=== PATIENT | female | born 1990 | race Caucasian/White ===

== ENCOUNTER 2017-01-19 15:33 | Emergency (ER) | payer BC, MEDICAID ==
[2017-01-19 15:34] VITALS: BMI 30.2
[2017-01-19 15:43] VITALS: BP 113/69; PULSE 103; RESP 18; TEMP 98.2; O2SAT 100
--- NOTE | 2017-01-19 16:15 | ED PDOC ---
Lower Extremity Pain/Injury Time Seen by Provider: 01/19/17 15:49 Chief Complaint (Nursing): Lower Extremity Problem/Injury Chief Complaint (Provider): Lower Extremity Problem/Injury History Per: Patient History/Exam Limitations: no limitations Onset/Duration Of Symptoms: Days (x1) Additional Complaint(s): Abigail Partida, 26 year old female presents to the ED on 01/19/17. The patient is 17 weeks . The patient reports consistent left lower back pain which sometimes radiates down to her left knee beginning yesterday. The patient reports lifting her child a lot. She denies any recent injury, dysuria, chest pain, nausea, or vomiting. The patient reports having some diarrhea this week. She has taken Tylenol for her pain with mild relief. The last dose of Tylenol was taken at 2:00 AM yesterday morning. No pelvic pain. No abd pain. No fever, dizziness. No numbness, tingles. No incontinence or constipation. Of note, the patient's blood is O+ reported from previous labs. Past Medical History Reviewed: Historical Data, Nursing Documentation, Vital Signs Vital Signs: Last Vital Signs Temp 98.2 F 01/19/17 15:40 Pulse 103 H 01/19/17 15:40 Resp 18 01/19/17 15:40 BP 113/69 01/19/17 15:40 Pulse Ox 100 01/19/17 15:40 - Medical History PMH: Asthma Denies: Chronic Kidney Disease - Surgical History Surgical History: No Surg Hx - Family History Family History: States: Unknown Family Hx - Home Medications Home Medications: Ambulatory Orders Medication Instructions Recorded Vit No.126/Iron/Folic 1 tab PO DAILY 08/19/15 [Prenavite] valACYclovir [Valtrex] 500 mg PO DAILY 12/15/15 Nitrofurantoin Macrocrystals 100 mg PO BID #10 cap 01/19/17 [Macrobid] - Allergies Allergies/Adverse Reactions: Allergies Allergy/AdvReac Type Severity Reaction Status Date / Time No Known Allergies Allergy Verified 01/19/17 15:39 Review of Systems ROS Statement: Except As Marked, All Systems Reviewed And Found Negative Cardiovascular: Negative for: Chest Pain Gastrointestinal: Positive for: Diarrhea. Negative for: Nausea, Vomiting Genitourinary Female: Negative for: Dysuria Musculoskeletal: Positive for: Back Pain (consistent left lower back pain sometimes radiating down to left knee ) Neurological: Negative for: Weakness, Numbness, Dizziness Physical Exam - Reviewed Nursing Documentation Reviewed: Yes Vital Signs Reviewed: Yes - Physical Exam Appears: Positive for: Non-toxic, No Acute Distress Head Exam: Positive for: ATRAUMATIC, NORMOCEPHALIC Skin: Positive for: Normal Color, Warm, Dry Eye Exam: Positive for: Normal appearance ENT: Positive for: Normal ENT Inspection Cardiovascular/Chest: Positive for: Regular Rate, Rhythm, Chest Non Tender Respiratory: Positive for: Normal Breath Sounds. Negative for: Respiratory Distress Gastrointestinal/Abdominal: Positive for: Normal Exam, Bowel Sounds, Soft. Negative for: Tenderness Back: Positive for: Normal Inspection, L CVA Tenderness, Other (mild tenderness to left lower back ) Extremity: Positive for: Normal ROM (left leg elevated to 60 degrees with tenderness to back). Negative for: Tenderness, Pedal Edema, Calf Tenderness Neurologic/Psych: Positive for: Alert, Oriented (x3) - Laboratory Results Result Diagrams: 01/19/17 16:40 01/19/17 16:40 Interpretation Of Abn Labs: urine wbc - ECG O2 Sat by Pulse Oximetry: 100 (RA) Pulse Ox Interpretation: Normal - Progress ED Course And Treament: 1859: Stable. AAOx3. Pain free. Tolerated PO. Fu with pcp and obgyn. Medical Decision Making Medical Decision Making: Initial Impression: Consistent left lower back pain sometimes radiating down to left knee. Possible source inclusive of but not limited to lifting child. Initial Plan: * Basic Metabolic Panel Stat * Beta-HCG, Quantitative Stat * ED Urine (POC) Stat * ED Urine Dipstick (POC) Stat * CBC (With Differential) Stat * Tylenol 325 mg tab 650 mg PO Stat * OB , Limited [US] Stat * Reevaluation Scribe Attestation: Documented by Flakita Erazo, acting as a scribe for Jim Wills MD. Provider Scribe Attestation: All medical record entries made by the Scribe were at my direction and personally dictated by me. I have reviewed the chart and agree that the record accurately reflects my personal performance of the history, physical exam, medical decision making, and the department course for this patient. I have also personally directed, reviewed, and agree with the discharge instructions and disposition. Disposition - Clinical Impression Clinical Impression: Back pain, Back pain, UTI (urinary tract infection) - Patient ED Disposition Is Patient to be Admitted: No Counseled Patient/Family Regarding: Studies Performed, Diagnosis, Need For Followup, Rx Given - [facility]position [facility] - [facility]17 Disposition: Routine/Home Disposition Time: 19:01 Condition: STABLE Additional Instructions: Return if not better in 3 days. Prescriptions: Nitrofurantoin Macrocrystals [Macrobid] 100 mg PO BID #10 cap Instructions: Urinary Tract Infection in (ED), Back Pain (ED)
[2017-01-19 16:52] LABS: BASO % 0.3 % (0.0-2.0); EOS # 0.2 K/uL (0.0-0.7); EOS % 2.5 % (0.0-4.0); HEMATOCRIT 32.8 % (34.0-47.0); LYMPH % 28.3 % (20.0-40.0); MEAN CELL VOLUME 88.7 fl (81.0-99.0); MEAN CORPUSCULAR HEMOGLOBIN 29.5 pg (27.0-31.0); MEAN CORPUSCULAR HGB CONC 33.2 g/dL (33.0-37.0); MEAN PLATELET VOLUME 8.9 fl (7.2-11.7); MONO # 0.7 K/uL (0.0-0.8); MONO % 10.6 % (0.0-10.0); NEUT % 58.3 % (50.0-75.0); RED CELL DISTRIBUTION WIDTH 14.2 % (11.5-14.5); WHITE BLOOD COUNT 6.9 K/uL (4.8-10.8)
[2017-01-19 17:14] LABS: BLOOD UREA NITROGEN 9 mg/dl (7-17); CALCIUM 8.8 mg/dL (8.4-10.2); CARBON DIOXIDE 25 mmol/L (22-30); CHLORIDE 104 mmol/L (98-107); GFR AFRICAN-AMERICAN > 60; GLUCOSE,RANDOM 92 mg/dL (65-105); POTASSIUM 3.9 MMOL/L (3.6-5.0); SODIUM 137 mmol/l (132-148)
[2017-01-19 17:24] LABS: RBC URINE 7 /hpf (0-3); URINE BACTERIA RARE (<OCC); URINE BILIRUBIN NEGATIVE (NEGATIVE); URINE BLOOD NEGATIVE (NEGATIVE); URINE CALCIUM OXALATE CRYSTALS OCC /hpf (<OCC); URINE COLOR YELLOW (YELLOW); URINE GLUCOSE (UA) NEG (Normal); URINE KETONE NEGATIVE (NEGATIVE); URINE LEUKOCYTE ESTERASE MOD Leu/uL (Negative); URINE PROTEIN NEGATIVE (NEGATIVE); URINE UROBILINOGEN 0.2-1.0 mg/dL (0.2-1.0); WBC URINE 9 /hpf (0-5)
--- NOTE | 2017-01-19 18:52 | US ---
Indication: back pain; eval pt. r/o bleeding Comparison: Transvaginal pelvic ultrasound performed 04/23/15 Technique: OB , limited. Real-time ultrasound was performed through the pelvis. Findings: There is a single living fetus in cephalic presentation. Anterior fundal placenta. The placenta is not previa. There are no adnexal masses or cysts evident. The right ovary is not seen. The left ovary measures approximately 3.0 x 2.0 x 3.1 cm. Blood flow is demonstrated to the left ovary. Cervix length measures approximately 4.4 cm. Measurements and calculations: Fetus has a composite sonographic age of 17 weeks 6 days. This calculation is based on the biparietal diameter, head circumference, abdominal circumference, and femur length. Estimated heart rate 164 beats per min. Impression: Single living fetus with a composite sonographic age of 17 weeks 6 days. Estimated heart rate 164 beats per min. The study was performed for the emergent evaluation of bleeding, and the whole anatomic survey of the fetus was not performed. This should be performed on an outpatient elective basis as clinically warranted.
== END 2017-01-19 19:12 | disposition home or self-care (01) ==
LOC: H.ER 15:33
DX: O23.42 Unspecified infection of urinary tract in pregnancy, second trimester (principal); Z3A.17 17 weeks gestation of pregnancy; M54.5 Low back pain

== ENCOUNTER 2017-02-01 19:36 | Emergency (ER) | payer BC ==
[2017-02-01 19:36] VITALS: BMI 30.2
[2017-02-01 19:47] VITALS: BP 121/64; RESP 16; TEMP 98.2; O2SAT 100
--- NOTE | 2017-02-01 20:38 | ED PDOC ---
HPI: Chest Pain Time Seen by Provider: 02/01/17 20:00 Chief Complaint (Nursing): Chest Pain Chief Complaint (Provider): Chest pain History Per: Patient History/Exam Limitations: no limitations Onset/Duration Of Symptoms: Hrs Current Symptoms Are (Timing): Still Present Context: Food Quality: Tightness Associated Symptoms: denies: Nausea Additional History Per: Patient Additional Complaint(s): The patient is a 26yo female, 20 weeks , PMHx of thyroid problems, asthma, presents to the ED for evaluation of chest tightness with associated left arm tingling since 1830 today; states she was sleeping after eating food and woke up due to her symptoms. Pt reports she thought the chest discomfort was due to heartburn but states she was concerned due to the tingling. She states her chest tightness is intermittent at present and spreads to her b/l ribs. She reports some shortness of breath due to the tightness. Denies taking any medications for her symptoms. Of note, pt states she spoke with her OBGYN who informed her to visit the ED for further evaluation. Past Medical History Reviewed: Historical Data, Nursing Documentation, Vital Signs Vital Signs: Last Vital Signs Temp 98.2 F 02/01/17 19:45 Pulse 92 H 02/01/17 22:07 Resp 16 02/01/17 19:45 BP 121/64 02/01/17 19:45 Pulse Ox 100 02/01/17 22:07 - Medical History PMH: Asthma Denies: Chronic Kidney Disease - Family History Family History: States: Unknown Family Hx - Home Medications Home Medications: Ambulatory Orders Medication Instructions Recorded Vit No.126/Iron/Folic 1 tab PO DAILY 08/19/15 [Prenavite] valACYclovir [Valtrex] 500 mg PO DAILY 12/15/15 Nitrofurantoin Macrocrystals 100 mg PO BID #10 cap 01/19/17 [Macrobid] Famotidine [Pepcid] 20 mg PO BID PRN #10 tab 02/01/17 - Allergies Allergies/Adverse Reactions: Allergies Allergy/AdvReac Type Severity Reaction Status Date / Time No Known Allergies Allergy Verified 01/19/17 15:39 Review of Systems ROS Statement: Except As Marked, All Systems Reviewed And Found Negative Cardiovascular: Positive for: Other (chest tightness) Respiratory: Positive for: Shortness of Breath (mild) Musculoskeletal: Positive for: Other (tingling to left arm) Physical Exam - Reviewed Nursing Documentation Reviewed: Yes Vital Signs Reviewed: Yes - Physical Exam Appears: Positive for: Well, Non-toxic, No Acute Distress Head Exam: Positive for: ATRAUMATIC, NORMAL INSPECTION, NORMOCEPHALIC Skin: Positive for: Normal Color, Warm, DRY Eye Exam: Positive for: Normal appearance, EOMI, PERRL Neck: Positive for: Normal, Supple Cardiovascular/Chest: Positive for: Regular Rate, Rhythm Respiratory: Positive for: Normal Breath Sounds. Negative for: Respiratory Distress Gastrointestinal/Abdominal: Positive for: Normal Exam Extremity: Positive for: Normal ROM. Negative for: Deformity, Swelling Neurologic/Psych: Positive for: Alert, Oriented - Laboratory Results Result Diagrams: 02/01/17 20:53 02/01/17 20:53 - ECG ECG: Positive for: Interpreted By Me, Viewed By Me Interpretation Of ECG: Normal sinus rhythm sinus arrhythmia Rate 92. Rate: 92 O2 Sat by Pulse Oximetry: 100 (RA) Pulse Ox Interpretation: Normal Medical Decision Making Medical Decision Making: Time: 2014 Impression: Acid Reflux in setting of Plan: -- EKG -- CMP -- Lipase -- Troponin -- CBC -- Pepcid 20 mg IVP Reassess Time: 1999 Pt reports feeling much better. Stable for d/c home. Will follow up with PCP. Scribe Attestation: Documented by Beth Saldana acting as a scribe for Kenyatta Bearden MD. Provider Attestation: All medical record entries made by the Scribe were at my direction and personally dictated by me. I have reviewed the chart and agree that the record accurately reflects my personal performance of the history, physical exam, medical decision making, and the department course for this patient. I have also personally directed, reviewed, and agree with the discharge instructions and disposition. Disposition - Clinical Impression Clinical Impression: Gastritis - Patient ED Disposition Is Patient to be Admitted: No - Disposition Disposition: Routine/Home Disposition Time: 21:00 Condition: IMPROVED Additional Instructions: follow up with your primary doctor in 1-2 days return to the ED with any worsening or concerning symptoms Prescriptions: Famotidine [Pepcid] 20 mg PO BID PRN #10 tab PRN Reason: Heartburn Instructions: Gastritis (ED)
[2017-02-01 20:59] LABS: BASO % 0.4 % (0.0-2.0); EOS # 0.3 K/uL (0.0-0.7); EOS % 3.5 % (0.0-4.0); HEMOGLOBIN 10.1 g/dL (12.0-16.0); LYMPH % 29.9 % (20.0-40.0); MEAN CORPUSCULAR HEMOGLOBIN 29.8 pg (27.0-31.0); MEAN CORPUSCULAR HGB CONC 33.5 g/dL (33.0-37.0); MEAN PLATELET VOLUME 8.4 fl (7.2-11.7); MONO # 0.9 K/uL (0.0-0.8); MONO % 9.2 % (0.0-10.0); NEUT # 5.7 K/uL (1.8-7.0); RBC 3.39 Mil/uL (3.80-5.20); RED CELL DISTRIBUTION WIDTH 13.8 % (11.5-14.5); WHITE BLOOD COUNT 9.9 K/uL (4.8-10.8)
[2017-02-01 21:12] LABS: ALBUMIN 3.2 g/dL (3.5-5.0); ALT/SGPT 31 U/L (9-52); AST/SGOT 32 U/L (14-36); BLOOD UREA NITROGEN 11 mg/dl (7-17); CALCIUM 8.4 mg/dL (8.4-10.2); GFR AFRICAN-AMERICAN > 60; GFR NON-AFRICAN AMERICAN > 60; LIPASE 252 U/L (23-300)
[2017-02-01 22:07] VITALS: PULSE 92
--- NOTE | 2017-02-07 10:03 | CARD ---
APPROVED REPORT EKG Measurement Heart [id number] HI [id number] <Conclusion> Normal sinus rhythm with sinus arrhythmia Nonspecific ST abnormality Abnormal ECG
== END 2017-02-01 22:45 | disposition home or self-care (01) ==
LOC: H.ER 19:36
DX: R07.89 Other chest pain (principal); K29.70 Gastritis, unspecified, without bleeding; R12 Heartburn; Z33.1 Pregnant state, incidental

== ENCOUNTER 2017-05-16 16:46 | Emergency (ER) | payer BC ==
[2017-05-15 13:24] VITALS: BMI 30.2
--- NOTE | 2017-05-16 18:08 | OBHP ---
Datetime: 05/16/2017 17:50 IP Adm Impression: , intrauterine ; No Active Labor IP Admit Plan: Observation/Evaluation; Discharge home Admit Comment, IP Provider: The patient's 27-year-old 2 para 1 estimated due date 1127 estim ated gestational age 34 weeks patient presents to labor and delivery complaining of vaginal discharge that started at 10 AM. Patient called PMD patient was referred to L_D for rule out rupture. Patient denies any uterine contractions she reports good movement patient states care has been unremarkable Past medical history asthma Medications vitamins Social history denies alcohol tobacco use Surgical history previous normal spontaneous vaginal delivery female 6 lbs. 12 oz. Review of systems patient denies headache chest pain shortness of breath palpitations nausea vomit ing diarrhea vaginal bleeding. Cold intolerance easy bruisability musculoskeletal or neurological com plaints Vital signs stable afebrile Physical exam see notes Intrauterine at 34 weeks Vaginal discharge Bedside sonogram NETO 10+ Physiological discharge Patient to follow up with PMD labor precautions provided Pelvic Type - PN: Adequate Extremities - PN: Normal Abdomen - PN: Normal Back - PN: Normal Breast - PN: Not Done Lungs - PN: Normal Heart - PN: Normal Thyroid - PN: Normal Neurologic - PN: Normal HEENT - PN: Normal General - PN: Normal Presentation-Admit: Vertex FHR - Baseline A Provider: 145 Gestation - Est Wks by US: 34.0 Pool Provider: Negative Vital Signs Provider: Reviewed IP Chief Complaint: Other NICHD Variability Prov Fetus A: Moderate 6-25bpm NICHD Accel Fetus A IP Provider: 10X10 FHR Category Provider Fetus A: Category I NICHD Decel Fetus A IP Provider: None Dilatation, Provider: 0 Effacement, Provider: 0 Station, Provider: 0 Genitourinary Exam: Normal DTRs - PN: Normal
[2017-05-16 22:26] VITALS: BP 107/62; PULSE 98; RESP 18; TEMP 98.4; O2SAT 100
== END 2017-05-16 18:00 | disposition home or self-care (01) ==
LOC: H.EROB2 16:46 → H.EROB 16:59 → H.EROB2 18:00
DX: O34.60 Maternal care for abnormality of vagina, unspecified trimester (principal); N89.8 Other specified noninflammatory disorders of vagina; Z3A.35 35 weeks gestation of pregnancy; O47.03 False labor before 37 completed weeks of gestation, third trimester

== ENCOUNTER 2017-06-12 19:52 | Inpatient (IN) | payer BC ==
[2017-06-12 21:37] VITALS: BMI 27.4
[2017-06-12 22:07] LABS: BASO % 0.4 % (0.0-2.0); EOS # 0.2 K/uL (0.0-0.7); EOS % 2.1 % (0.0-4.0); HEMATOCRIT 31.8 % (34.0-47.0); LYMPH % 29.9 % (20.0-40.0); MEAN CELL VOLUME 87.6 fl (81.0-99.0); MEAN CORPUSCULAR HEMOGLOBIN 29.1 pg (27.0-31.0); MEAN CORPUSCULAR HGB CONC 33.2 g/dL (33.0-37.0); MEAN PLATELET VOLUME 8.9 fl (7.2-11.7); MONO # 1.3 K/uL (0.0-0.8); MONO % 13.2 % (0.0-10.0); NEUT # 5.4 K/uL (1.8-7.0); NEUT % 54.4 % (50.0-75.0); RED CELL DISTRIBUTION WIDTH 15.1 % (11.5-14.5)
--- NOTE | 2017-06-12 22:12 | OBHP ---
Datetime: 06/12/2017 22:07 IP Adm Impression: Term, intrauterine ; No Active Labor IP Admit Plan: Admit to unit Admit Comment, IP Provider: The patient's 27-year-old 2 para 1 estimated due date 1127 estim ated gestational age 38 weeks patient presents to labor and delivery complaining of passing her mucou s plug. Patient called PMD patient was referred to L_D. Patient denies any uterine contractions she r eports good movement patient states care has been unremarkable Past medical history asthma Medications vitamins Social history denies alcohol tobacco use Surgical history previous normal spontaneous vaginal delivery female infant 6 lbs. 12 oz. Review of systems patient denies headache chest pain shortness of breath palpitations nausea vomit ing diarrhea vaginal bleeding. Cold intolerance easy bruisability musculoskeletal or neurological com plaints Vital signs stable afebrile Physical exam see notes Intrauterine at 38 weeks latent labor vertex presentation adequate pelvis efw 7 lbs Discussed care with PMD pt for admissoion Pelvic Type - PN: Adequate Extremities - PN: Normal Abdomen - PN: Normal Back - PN: Normal Breast - PN: Normal Lungs - PN: Normal Heart - PN: Normal Thyroid - PN: Normal Neurologic - PN: Normal HEENT - PN: Normal General - PN: Normal Weight - Estimated: 7 Presentation-Admit: Vertex FHR - Baseline A Provider: 145 Gestation - Est Wks by US: 38.0 Pool Provider: Negative Vital Signs Provider: Reviewed IP Chief Complaint: Uterine contractions; Maternal discomfort NICHD Variability Prov Fetus A: Moderate 6-25bpm NICHD Accel Fetus A IP Provider: 15X15 Dilatation, Provider: 3 Effacement, Provider: 75 Station, Provider: -2 Genitourinary Exam: Normal DTRs - PN: Normal
[2017-06-12] MEDS ORDERED: Oxytocin 30 UNITS in Sodium Chloride 0.9% 500 ML IV ONE (22:21)
[2017-06-12] MEDS: Lactated Ringer's 1,000 ML IV SCH (23:00)
[2017-06-13] MEDS: Lactated Ringer's 1,000 ML IV SCH ×3 (05:02→08:00)
[2017-06-13] MEDS ORDERED: Fentanyl/Bupivacaine HCl 250 ML EPI ONE (05:46)
--- NOTE | 2017-06-13 12:27 | OBDS ---
MATERNAL INFORMATION Delivery Anesthesia: Epidural Estimated Blood Loss (ml): 250cc Maternal Complications: None Provider Comments: Delivered a living baby girl appears term cried spontaneously 9/9 AgF clear Nuchal cord x1 loose, undone prior to full delivery Placenta complete and intact Episiotomy repaired as above no complications Uterus contracted well Rectal done no defects Pt tolerated procedure well No complications LABOR SUMMARY EDC: 06/25/2017 00:00 No. Babies in Womb: 1 Attempted: No Labor Anesthesia: Epidural LABOR INFORMATION Reason for Induction: Not Applicable Reason for Induction Other: n/a Onset of Labor: 06/13/2017 05:00 Complete Dilatation: 06/13/2017 11:30 Oxytocin: Augmentation Group B Beta Strep: Negative Antibiotics # of Doses: n/a Antibiotics Time of Last Dose: n/a Steroids Given: None Reason Steroids Not Administered: Not Applicable MEMBRANES Membranes Rupture Method: Artificial Rupture of Membranes: 06/13/2017 07:17 Length of Rupture (hrs): 4.42 Amniotic Fluid Color: Clear Amniotic Fluid Amount: Small Amniotic Fluid Odor: Normal STAGES OF LABOR Stage 1 hrs: 6 Stage 1 min: 30 Stage 2 hrs: 0 Stage 2 min: 12 Stage 3 hrs: 0 Stage 3 min: 4 Total Time in Labor hrs: 6 Total Time in Labor min: 46 VAGINAL DELIVERY Episiotomy: Median Laceration Extension: Second Degree Laceration Type: None Laceration Repair: Not Applicable Laceration Repair Note: mid line episiotomy done and repaired with 2-0 chromic continuously for vagi na and interuupted for deep tissue No complications Initial Vag Sponge Count: laps=5 Final Vag Sponge Count: laps=5 Initial Vag Sharps Count: 1 Final Vag Sharps Count: 1 Sponge Count Correct: Yes Sharps Count Correct: Yes Count Comment: acknowledge by Dr Lim CSECTION DELIVERY Primary Indication: N/A Secondary Indication: N/A BABY A INFORMATION Infant Delivery Date/Time: 06/13/2017 11:42 Method of Delivery: Vaginal Born in Route : No : N/A Forceps: N/A Vacuum Extraction: N/A Shoulder Dystocia : No SHOULDER DYSTOCIA BABY A Delivery Date/Time: 06/13/2017 11:42 PRESENTATION/POSITION BABY A Presentation: Cephalic Cephalic Presentation: Vertex Breech Presentation: N/A PLACENTA INFORMATION BABY A Placenta Delivery Time : 06/13/2017 11:46 Placenta Method of Delivery: Spontaneous Placenta Status: Delivered SCORES BABY A Heart Rate 1 min: >100 bpm Resp Effort 1 min: Good Cry Reflex Irritability 1 min: Cough or Sneeze or Pulls Away Muscle Tone 1 min: Active Motion Color 1 min: Body [place], Extremities Blue Resuscitation Effort 1 min: Tactile Stimulation SCORE 1 MIN: 9 Heart Rate 5 min: >100 bpm Resp Effort 5 min: Good Cry Reflex Irritability 5 min: Cough or Sneeze or Pulls Away Muscle Tone 5 min: Active Motion Color 5 min: Body [place], Extremities Blue Resuscitation Effort 5 min: N/A SCORE 5 MIN: 9 INFANT INFORMATION BABY A Gestational Age at Delivery: 38.2 Gestational Status: Term Infant Outcome : Liveborn Condition : Stable Sex: Female IDENTIFICATION/MEDS BABY A ID Band Number: [id number] ID Band Location: Left Leg; Left Arm Vitamin K Given : Not Given Erythromycin Given: Not Given WEIGHT/LENGTH BABY A Infant Birthweight (gms): 3015 Infant Weight (lb): 6 Weight (oz): 10 Infant Length Inches: 20.00 Length cms: 50.8 CORD INFORMATION BABY A No. Cord Vessels: 3 Nuchal Cord : Around Neck x1, Loose Nuchal Cord Other: n/a True Knot: n/a Infant Cord pH Baby Arterial: n/a Cord pH Baby Venous: n/a Cord Blood Taken: Yes Banking/Donate Info: n/a Suction: Mouth; Nose ASSESSMENT BABY A Complications: None Physical Findings at Delivery: Within Normal Limits Respirations: Appears Normal Floor Finisher/ALS Called : No Infant Care By: Dulce Transferred To: Remains with Mother
[2017-06-13] MEDS ORDERED: Oxycodone/Acetaminophen 5/325 mg Tab PO PRN (12:29)
[2017-06-13] MEDS ORDERED: Oxytocin 30 UNITS in Sodium Chloride 0.9% 500 ML IV SCH (12:30)
[2017-06-13] MEDS ORDERED: Benzocaine/Menthol SPRAY TOP PRN (17:04)
[2017-06-14 06:12] LABS: HEMATOCRIT 29.8 % (34.0-47.0); MEAN CELL VOLUME 86.8 fl (81.0-99.0); MEAN CORPUSCULAR HEMOGLOBIN 29.4 pg (27.0-31.0); MEAN CORPUSCULAR HGB CONC 33.8 g/dL (33.0-37.0); RED CELL DISTRIBUTION WIDTH 15.2 % (11.5-14.5); WHITE BLOOD COUNT 10.2 K/uL (4.8-10.8)
--- NOTE | 2017-06-14 07:39 | OBPPN ---
Datetime: 06/14/2017 07:35 PP Pain Prov: Within normal limits PP Pain Prov comment: No SOB chest or leg pains PP Nausea Prov: Denies PP Flatus Prov: Yes PP Breasts Prov: Normal PP Lungs Prov: Normal PP Abdomen/Uterus Prov: Abnormal PP Lochia Prov: Normal PP Vulva/Perineum Prov: Abnormal PP CVA Tenderness Prov: Normal PP Extremities Prov: Normal PP C/S Incision Prov: Not Applicable PP Progress Prov: Normal PP Comments Phys Exam Prov: breast not engorged, abd soft ND fundus firm NT below the umb PP Impression Prov: Normal progression PP Plan Prov: Continue present management PP Progress Note Prov: continue PP care OOB and ambulation IP PP Procedures: None
[2017-06-14] MEDS ORDERED: Influenza Vaccine 18yr & older 0.5 ML/45 MCG SYR IM ONE (09:00)
--- NOTE | 2017-06-15 08:37 | OBPPN ---
Datetime: 06/15/2017 08:32 PP Pain Prov: Within normal limits PP Pain Prov comment: No SOB, chest pains or leg pains PP Nausea Prov: Denies PP Flatus Prov: Yes PP Nausea Prov comment: voiding well PP Breasts Prov: Normal PP Lungs Prov: Normal PP Abdomen/Uterus Prov: Abnormal PP Lochia Prov: Normal PP CVA Tenderness Prov: Normal PP Extremities Prov: Normal PP C/S Incision Prov: Not Applicable PP Progress Prov: Normal PP Comments Phys Exam Prov: breast not engorged, NT; Abd soft ND fundus firm below the umb. NT, ext no calf tenderness. PP Impression Prov: Normal progression PP Plan Prov: Discharge PP Progress Note Prov: D/C home with instructions and appt to office 4-6 wks Vital Signs Provider PP: Reviewed
--- NOTE | 2017-06-15 08:39 | OBDCSUM ---
Datetime: 06/15/2017 08:35 Discharged to, Provider: Home Follow up at, Provider: Dr Lim Disch Instr Activity: Bedrest; May be up to bathroom; May be up for meals; May Shower Disch Instr Diet: Regular Discharge Instructions, Provider: Routine instructions given Discharge Diagnosis, Provider: Term Delivered Discharge Time: 06/15/2017 08:35 Follow up in weeks, Provider: 4-6 wks Disch Referrals: None Contraception discussed, Prov: Yes Disch Activity Restrictions: No lifting; No driving; Minimize walking; Minimize stair-climbing; No s exual activity; Nothing in vagina - [place], tampons, douche Discharge Comment, Provider: Continue PNC and iron Contraception after Delivery: Undecided
[2017-06-15 17:06] VITALS: BP 98/50; PULSE 74; RESP 18; TEMP 97.9; O2SAT 100
== END 2017-06-15 13:00 | disposition home or self-care (01) | DRG 775 ==
LOC: H.EROB2 19:52 → H.L&D 21:39 → H.OB/GYN 06-13 14:15
PROVIDERS: ADMIT Specialist; ATTEND Specialist
PROC: 0KQM0ZZ Repair Perineum Muscle, Open Approach (ICD-10-PCS; principal; 2017-06-12)
PROC: 10E0XZZ Delivery of Products of Conception, External Approach (ICD-10-PCS; 2017-06-12)
PROC: 0W8NXZZ Division of Female Perineum, External Approach (ICD-10-PCS; 2017-06-12)
DX: O69.81X0 Labor and delivery complicated by cord around neck, without compression, not applicable or unspecified (principal); J45.909 Unspecified asthma, uncomplicated; O70.1 Second degree perineal laceration during delivery; Z37.0 Single live birth; O99.52 Diseases of the respiratory system complicating childbirth; Z3A.38 38 weeks gestation of pregnancy

== ENCOUNTER 2017-09-05 08:11 | Emergency (ER) | payer BC ==
[2017-09-05 08:13] VITALS: BMI 24.1
[2017-09-05 08:16] VITALS: BP 100/70; PULSE 87; RESP 18; TEMP 98.1; O2SAT 100
--- NOTE | 2017-09-05 08:53 | ED PDOC ---
HPI: Back Time Seen by Provider: 09/05/17 08:15 Chief Complaint (Nursing): Back Pain Chief Complaint (Provider): Back Pain History Per: Patient History/Exam Limitations: no limitations Onset/Duration Of Symptoms: Days (x 4 months) Current Symptoms Are (Timing): Still Present Additional Complaint(s): Abigail is a 27 y/o female who presents to the ED complaining of low back pain for the past 4 months that is worse with moving and sitting. Patient states she stands for 10 hours at work which makes it worse. She was recently seen by her PMD who started her on motrin 10mg with minimal relief. She denies paresthesias, weakness, incontinence, or trauma. PMD: Tang Perkins Past Medical History Reviewed: Historical Data, Nursing Documentation, Vital Signs Vital Signs: Last Vital Signs Temp 98.1 F 09/05/17 08:14 Pulse 87 09/05/17 08:14 Resp 18 09/05/17 08:14 BP 100/70 09/05/17 08:14 Pulse Ox 100 09/05/17 08:14 - Medical History PMH: Asthma Denies: Depression, Diabetes, HTN, Chronic Kidney Disease - Family History Family History: States: Unknown Family Hx - Home Medications Home Medications: Ambulatory Orders Medication Instructions Recorded Vit Calc,Iron,Folic 1 each PO DAILY 06/12/17 [ Vitamins] Naproxen [Naprosyn] 500 mg PO BID PRN #15 tablet 09/05/17 Nitrofurantoin Macrocrystals 100 mg PO BID #14 cap 09/05/17 [Macrobid] - Allergies Allergies/Adverse Reactions: Allergies Allergy/AdvReac Type Severity Reaction Status Date / Time seafood Allergy RASH Uncoded 06/12/17 21:38 Review of Systems ROS Statement: Except As Marked, All Systems Reviewed And Found Negative Genitourinary Female: Negative for: Incontinence Musculoskeletal: Positive for: Back Pain (lower) Neurological: Negative for: Weakness, Other (paresthesias) Physical Exam - Reviewed Nursing Documentation Reviewed: Yes Vital Signs Reviewed: Yes - Physical Exam Appears: Positive for: Well (ambulating without difficulty), Non-toxic, No Acute Distress Back: Positive for: Vertebral Tenderness (mild lumbar). Negative for: Other ( straight leg) Extremity: Positive for: Normal ROM Neurologic/Psych: Positive for: Alert, Oriented. Negative for: Motor/Sensory Deficits - ECG O2 Sat by Pulse Oximetry: 100 (RA) Pulse Ox Interpretation: Normal Medical Decision Making Medical Decision Making: Time: 8:37 Initial Impression: Chronic Low Back Pain Initial Plan: --XR Lumbar Spine --Urine Dip --Urine --Urine Culture --Urinalysis Scribe Attestation: Documented by Edward Lewis, acting as a scribe for Dr. Orin Prieto MD. Provider Scribe Attestation: All medical record entries made by the Scribe were at my direction and personally dictated by me. I have reviewed the chart and agree that the record accurately reflects my personal performance of the history, physical exam, medical decision making, and the department course for this patient. I have also personally directed, reviewed, and agree with the discharge instructions and disposition. Disposition - Clinical Impression Clinical Impression: Low back pain, UTI (urinary tract infection) - Disposition Referrals: Tang Perkins MD [Family Provider] - Disposition: Routine/Home Disposition Time: 10:57 Condition: STABLE Prescriptions: Naproxen [Naprosyn] 500 mg PO BID PRN #15 tablet PRN Reason: Pain, Moderate (4-7) Nitrofurantoin Macrocrystals [Macrobid] 100 mg PO BID #14 cap Instructions: Urinary Tract Infection in Women (ED), Chronic Back Pain (ED) Forms: [employer] ([place])
[2017-09-05 09:13] LABS: SQUAMOUS EPITHIAL 5 /hpf (0-5); URINE BACTERIA OCC (<OCC); URINE BILIRUBIN NEGATIVE (NEGATIVE); URINE BLOOD LARGE (NEGATIVE); URINE CLARITY CLOUDY (Clear); URINE COLOR YELLOW (YELLOW); URINE GLUCOSE (UA) NEG (Normal); URINE LEUKOCYTE ESTERASE LARGE Leu/uL (Negative); URINE NITRATE NEGATIVE (NEGATIVE); URINE PROTEIN NEGATIVE (NEGATIVE); URINE UROBILINOGEN 0.2-1.0 mg/dL (0.2-1.0)
--- NOTE | 2017-09-05 11:59 | RAD ---
PROCEDURE: Radiographs of the Lumbar Spine. HISTORY: Low back pain X 4 months COMPARISON: Lumbar spine radiographs performed 12/17/14 FINDINGS: BONES: Alignment appears satisfactory. No listhesis. No acute displaced fracture identified. DISC SPACES: Unremarkable. OTHER FINDINGS: Moderate partially imaged constipation. IMPRESSION: No acute displaced fracture or subluxation evident. Moderate partially imaged constipation.
== END 2017-09-05 11:23 | disposition home or self-care (01) ==
LOC: H.ER 08:11
DX: N39.0 Urinary tract infection, site not specified (principal); M54.9 Dorsalgia, unspecified; G89.29 Other chronic pain; J45.909 Unspecified asthma, uncomplicated

== ENCOUNTER 2018-04-15 11:37 | Emergency (ER) | payer OTHER, BC ==
[2018-04-15 11:37] VITALS: BMI 24.1
[2018-04-15 11:46] VITALS: BP 120/70; PULSE 70; RESP 20; TEMP 98.7; O2SAT 98
--- NOTE | 2018-04-15 12:24 | ED PDOC ---
HPI: Back Time Seen by Provider: 04/15/18 12:15 Chief Complaint (Nursing): Back Pain Chief Complaint (Provider): Back pain History/Exam Limitations: no limitations Onset/Duration Of Symptoms: Hrs Current Symptoms Are (Timing): Still Present Quality Of Discomfort: "Pain" Previous Symptoms: Back Pain, Chronic Pain Additional History Per: Patient Additional Complaint(s): 28yo female, history of back pain, comes to ER for evaluation of back pain after she slipped and fell while at work. Patient states she landed on her tailbone and currently the pain is present in her lower back. She otherwise denies any lower extremity weakness, numbness, bowel or bladder discomfort. PMD: Dr. Perkins Past Medical History Reviewed: Historical Data, Nursing Documentation, Vital Signs Vital Signs: Last Vital Signs Temp 98.7 F 04/15/18 11:43 Pulse 70 04/15/18 11:43 Resp 20 04/15/18 11:43 BP 120/70 04/15/18 11:43 Pulse Ox 98 04/15/18 11:43 - Medical History PMH: Asthma, Back Problems (herniated disks) Denies: Depression, Diabetes, HTN, Chronic Kidney Disease - Surgical History Surgical History: No Surg Hx - Family History Family History: States: No Known Family Hx - Home Medications Home Medications: Ambulatory Orders Medication Instructions Recorded Vit Calc,Iron,Folic 1 each PO DAILY 06/12/17 [ Vitamins] Naproxen [Naprosyn] 500 mg PO BID PRN #15 tablet 09/05/17 Nitrofurantoin Macrocrystals 100 mg PO BID #14 cap 09/05/17 [Macrobid] Cyclobenzaprine [Cyclobenzaprine 10 mg PO Q8H PRN #12 tab 04/15/18 HCl] Naproxen [Naprosyn] 500 mg PO BID PRN #20 tablet 04/15/18 - Allergies Allergies/Adverse Reactions: Allergies Allergy/AdvReac Type Severity Reaction Status Date / Time seafood Allergy RASH Uncoded 04/15/18 11:43 Review of Systems ROS Statement: Except As Marked, All Systems Reviewed And Found Negative Musculoskeletal: Positive for: Back Pain. Negative for: Leg Pain Neurological: Negative for: Weakness, Numbness Physical Exam - Reviewed Nursing Documentation Reviewed: Yes Vital Signs Reviewed: Yes - Physical Exam Appears: Positive for: Well, Non-toxic, No Acute Distress Head Exam: Positive for: ATRAUMATIC, NORMAL INSPECTION, NORMOCEPHALIC Skin: Positive for: Normal Color Eye Exam: Positive for: Normal appearance ENT: Positive for: Normal ENT Inspection Neck: Positive for: Painless ROM, Supple Cardiovascular/Chest: Positive for: Regular Rate, Rhythm Respiratory: Positive for: Normal Breath Sounds. Negative for: Accessory Muscle Use, Respiratory Distress Back: Positive for: Vertebral Tenderness (midline tenderness to lower back), Other. Negative for: L CVA Tenderness, R CVA Tenderness Extremity: Positive for: Normal ROM. Negative for: Tenderness Neurologic/Psych: Positive for: Alert, Oriented. Negative for: Motor/Sensory Deficits - ECG O2 Sat by Pulse Oximetry: 98 (RA) Pulse Ox Interpretation: Normal Medical Decision Making Medical Decision Making: Impression: lower back pain s/p mechanical fall; history of chronic back pain Plan: * XR lumbar spine * Naproxen 500mg PO * UPreg 1231 UPreg negative No acute abnormalities seen on XR of the LS. PT reports feeling better on re- evaluation. Scribe Attestation: Documented by Beth Saldana acting as a scribe for JANNA Earl. Provider Attestation: All medical record entries made by the Scribe were at my direction and personally dictated by me. I have reviewed the chart and agree that the record accurately reflects my personal performance of the history, physical exam, medical decision making, and the department course for this patient. I have also personally directed, reviewed, and agree with the discharge instructions and disposition. Disposition - Clinical Impression Clinical Impression: Acute back pain - Patient ED Disposition Is Patient to be Admitted: No Counseled Patient/Family Regarding: Diagnosis, Need For Followup, Rx Given - Disposition Disposition: Routine/Home Disposition Time: 13:51 Condition: STABLE Prescriptions: Cyclobenzaprine [Cyclobenzaprine HCl] 10 mg PO Q8H PRN #12 tab PRN Reason: Muscle Spasm Naproxen [Naprosyn] 500 mg PO BID PRN #20 tablet PRN Reason: Pain Instructions: Low Back Pain (DC) Forms: [facility] [employer] [facility] (Honduran), [facility] ED School/Work Excuse
[2018-04-15] MEDS ORDERED: Naproxen 500 MG TAB PO STA (12:29)
[2018-04-15] MEDS ORDERED: Naproxen 500 MG TAB PO ONE (12:29)
--- NOTE | 2018-04-15 13:56 | RAD ---
Date of service: 04/15/2018 PROCEDURE: Radiographs of the Lumbar Spine. HISTORY: Posttraumatic back pain/fall. COMPARISON: No prior. FINDINGS: BONES: Normal alignment. No listhesis. No fracture. DISC SPACES: Unremarkable. OTHER FINDINGS: None. IMPRESSION: Unremarkable radiographs of the lumbar spine.
== END 2018-04-15 14:35 | disposition home or self-care (01) ==
LOC: H.ER 11:37
DX: M54.5 Low back pain (principal); G89.29 Other chronic pain; J45.909 Unspecified asthma, uncomplicated; W01.0XXA Fall on same level from slipping, tripping and stumbling without subsequent striking against object, initial encounter

== ENCOUNTER 2018-05-23 09:45 | Emergency (ER) | payer BC, OTHER ==
[2018-05-23 09:45] VITALS: BMI 24.1
[2018-05-23 09:52] VITALS: BP 111/78; PULSE 96; RESP 18; TEMP 97; O2SAT 100
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
== END 2018-05-23 11:52 | disposition home or self-care (01) ==
LOC: H.ER 09:45
DX: F32.9 Major depressive disorder, single episode, unspecified (principal)

== ENCOUNTER 2018-09-03 08:15 | Emergency (ER) | payer MEDICAID ==
[2018-09-03 08:23] VITALS: PULSE 88; RESP 16; TEMP 97; O2SAT 100
[2018-09-03 08:24] VITALS: BMI 24.5
[2018-09-03] MEDS ORDERED: Alum-Mag Hydrox-Simethicone Susp (30 mL) PO ONE (08:45)
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
[2018-09-03] MEDS ORDERED: Alum-Mag Hydrox-Simethicone Susp (30 mL) ONE (09:19)
[2018-09-03 09:22] LABS: BASO % 1.1 % (0.0-2.0); EOS # 0.2 K/uL (0.0-0.7); EOS % 6.3 % (0.0-4.0); HEMOGLOBIN 12.1 g/dL (12.0-16.0); LYMPH # 1.4 K/uL (1.0-4.3); LYMPH % 39.8 % (20.0-40.0); MEAN CELL VOLUME 89.1 fl (81.0-99.0); MEAN CORPUSCULAR HEMOGLOBIN 29.9 pg (27.0-31.0); MEAN CORPUSCULAR HGB CONC 33.5 g/dL (33.0-37.0); MEAN PLATELET VOLUME 9.4 fl (7.2-11.7); MONO # 0.4 K/uL (0.0-0.8); MONO % 10.9 % (0.0-10.0); NEUT # 1.5 K/uL (1.8-7.0); NEUT % 41.9 % (50.0-75.0); NRBC % 0.2 % (0.0-0.0); RBC 4.05 Mil/uL (3.80-5.20); RED CELL DISTRIBUTION WIDTH 13.6 % (11.5-14.5); WHITE BLOOD COUNT 3.5 K/uL (4.8-10.8)
[2018-09-03 09:32] LABS: ALB/GLOB RATIO 1.2 (1.0-2.1); ALT/SGPT 15 U/L (9-52); AST/SGOT 19 U/L (14-36); BLOOD UREA NITROGEN 14 mg/dl (7-17); CALCIUM 9.3 mg/dL (8.4-10.2); GFR NON-AFRICAN AMERICAN > 60; LIPASE 156 U/L (23-300)
--- NOTE | 2018-09-03 20:30 | CARD ---
APPROVED REPORT Date of service: 09/03/2018 EKG Measurement Heart [id number] <Conclusion> Normal sinus rhythm with sinus arrhythmia Normal ECG
[2018-09-03 22:57] VITALS: BP 112/74
== END 2018-09-03 12:13 | disposition home or self-care (01) ==
LOC: H.ER 08:15
DX: R10.9 Unspecified abdominal pain (principal); K21.9 Gastro-esophageal reflux disease without esophagitis; F17.200 Nicotine dependence, unspecified, uncomplicated; J45.909 Unspecified asthma, uncomplicated; Z86.59 Personal history of other mental and behavioral disorders